=== PATIENT | female | born 1975 | race Caucasian/White ===

== ENCOUNTER → 2016-09-09 | Outpatient (CLI) | payer OTHER ==
[~2016-09-09] MED LIST: NIACIN
--- NOTE | 2016-09-12 12:48 | Diagnostic Imaging Report ---
EXAMINATION: Bilateral screening mammogram 2D views with tomosynthesis. The current study was also evaluated with a Computer Aided Detection (CAD) system. INDICATION: Screening. PERSONAL HISTORY: No current complaints stated on the questionnaire. COMPARISON: None. This is a baseline exam. FINDINGS: The breasts are composed of heterogeneously dense parenchyma which may decrease mammographic sensitivity. There are occasional benign-appearing calcifications. No mass, architectural distortion, or suspicious cluster of calcifications is seen. IMPRESSION: No definite focal lesion is seen. Annual screening mammograms are recommended. ACR BI-RADS Category 2: Benign findings. Result letter will be mailed to the patient. Note: At least 10% of breast cancer is not imaged by mammography. Dictated by: Dictated on workstation # [id number]
== END ==
LOC: RAD 12:35
PROVIDERS: ATTEND Nurse Practitioner
DX: Z12.31 Encounter for screening mammogram for malignant neoplasm of breast (principal)
CPT/HCPCS: 77067

== ENCOUNTER 2017-07-14 08:00 | Outpatient (RCR) | payer OTHER | END 2017-07-16 | disposition home or self-care (01) | PROVIDERS: ATTEND Family Medicine | DX: M54.5 Low back pain (principal) ==

== ENCOUNTER → 2017-09-12 | Outpatient (CLI) | payer OTHER ==
--- NOTE | 2017-09-12 18:03 | Diagnostic Imaging Report ---
INDICATION: Routine screening. COMPARISON: Comparison is made with prior study from 09/09/2016. TECHNIQUE: 2D and 3D bilateral screening mammography was performed with computer-aided detection (CAD) system. FINDINGS: Scattered fibroglandular densities are identified bilaterally. The parenchymal pattern appears stable. No mass or malignant appearing microcalcifications are seen. The axillae are unremarkable. IMPRESSION: No mammographic features suspicious for malignancy are identified. ACR BI-RADS Category 1: Negative. Result letter will be mailed to the patient. Note: At least 10% of breast cancer is not imaged by mammography. Dictated by: Dictated on workstation # [id number]
== END ==
LOC: RAD 14:48
PROVIDERS: ATTEND Nurse Practitioner
DX: Z12.31 Encounter for screening mammogram for malignant neoplasm of breast (principal)
CPT/HCPCS: 77067

== ENCOUNTER 2017-10-11 13:07 | Outpatient (RCR) | payer OTHER | END 2017-10-19 | disposition home or self-care (01) | PROVIDERS: ATTEND Family Medicine | DX: M54.5 Low back pain (principal) ==

== ENCOUNTER 2017-11-07 11:13 | Outpatient (RCR) | payer OTHER | END 2017-11-12 | disposition home or self-care (01) | PROVIDERS: ATTEND Family Medicine | DX: M54.5 Low back pain (principal) ==

== ENCOUNTER 2017-12-28 05:30 | Outpatient (CLI) | payer OTHER ==
[~2017-12-28] VITALS: Ht 167.6 cm; Wt 80.3 kg
[2017-12-28] MEDS ORDERED: ESCI20TA PO (14:44)
[2017-12-28] MEDS ORDERED: GUAI600T43 PO (14:44)
[2017-12-28] MEDS ORDERED: BACI1CAP6 PO (14:44)
[2017-12-28] MEDS ORDERED: FEXO180T84 PO (14:44)
== END 2017-12-28 14:58 | disposition home or self-care (01) ==
LOC: PREOP 05:30
PROVIDERS: ATTEND Obstetrics & Gynecology
DX: Z01.818 Encounter for other preprocedural examination (principal)

== ENCOUNTER 2018-01-05 05:54 | Day surgery (SDC) | payer OTHER ==
[~2018-01-05] VITALS: Ht 167.6 cm; Wt 80.4 kg
[~2018-01-05 05:54] MED LIST changes: +BACI1CAP6 PO; +ESCI20TA PO; +FEXO180T84 PO; +GUAI600T43 PO
[2018-01-05 06:20] VITALS: BP 105/76
[2018-01-05] MEDS ORDERED: ceFAZolin INJECTION 1,000 MG in NS (IVPB) 50 ML IV ONE (06:30)
[2018-01-05] MEDS ORDERED: metroNIDAZOLE 500MG/100ML IVPB 100 ML IV ONE (06:30)
[2018-01-05] MEDS: LACTATED RINGERS 1,000 ML IV PRN ×2 (06:45→08:28)
[2018-01-05] MEDS ORDERED: MIDAZOLAM 2 MG/2 ML (VERSED) VIAL ONE (06:51)
[2018-01-05] MEDS ORDERED: fentaNYL INJECTION 100 MCG/2 ML AMP ONE (06:51)
--- NOTE | 2018-01-05 06:51 | History & Physical-Surgical ---
HPO-Surgical History of Present Illness Chief Complaint: 42 year old female with heavy bleeding. OCPs controlled bleeding but she had undesirable side effects with the OCPs. These improved after stopping the OCPs but the pelvic pain and menorrhagia has increased again. Now requesting definitive treatement for bleeding and pain. Diagnostic laparoscopy and ovarian cancer risk reduction salpingectomy with possible resection of endometriosis/OIP and then hysterscopy, dilation and curettage with Novasure endometrial ablation scheduled today. Risks of bleeding, infection, injury to bowel, bladder and ureter explained and understood. Understands that she is unable to bear children following this procedure. Consents have been signed. Diagnosis/Surgical Indication: menorrhagia, dysmenorrhia, pelvic pain, ovarian cancer risk reduction Procedure: hysteroscopy, novasure endometrial ablation, risk reduction salpingectomy Date of Surgery: Jan 05, 2018 Weight (Pounds): 177 Weight (Ounces): 4.0 Height (Feet): 5 Height (Inches): 6.00 Allergies and Home Medications Allergies Coded Allergies: No Known Drug Allergies (Unverified , 08/29/14) Home Medications Bacillus Coagulans 1 Each Capsule.dr, 1 EACH PO DAILY, (Reported) Escitalopram Oxalate 20 Mg Tablet, 20 MG PO DAILY, (Reported) Fexofenadine HCl 180 Mg Tablet, 180 MG PO DAILY, (Reported) Guaifenesin 600 Mg Tab.er.12h, 600 MG PO DAILY PRN for CONGESTION, (Reported) Patient Home Medication List Home Medication List Reviewed: Yes Past Hekstpn-Ykevht-Imxyip Hx Patient Social History Marrital Status: Number of Children: 3 Number of living children: 2 Employed/Student: employed Alcohol Use: Denies Use Smoking Status: Former Smoker Recent Foreign Travel: No Contact w/other who traveled: No Recent Hopitalizations: No Seasonal Allergies Seasonal Allergies: Yes Surgeries Gallbladder, Orthopedic, Tonsillectomy Reproductive System : No Last Menstrual Period: Dec 18, 2017 Hx : 3 Hx Para: 2 Hx Total # of Abortions (Spona: 1 Hx Reproductive Disorders: Yes Genitourinary No Gastrointestinal No Musculoskeletal No HEENT History of HEENT Disorders: No Cancer No Family Medical History Significant Family History: No Pertinent Family Hx Other Significan Family Hx: FH of breast cancer Exam Vital Signs Capillary Refill : Labs Laboratory Tests Test 01/05/18 06:28 Range/Units Urine Test NEGATIVE NEGATIVE General Appearance: Alert Respiratory: Clear to Auscultation Cardiovascular: Regular Rate, Normal S1, Normal S2 Assessment/Plan Assessment and Plan Menorrhagia Pelvic pain Ovarian cancer risk reduction Plan as above OPAL MIN DO Jan 05, 2018 06:51
[2018-01-05] MEDS ORDERED: SEVOFLURANE (ULTANE) 15 ML INHAL SOLN ONE ×4 (06:57→08:58)
[2018-01-05] MEDS ORDERED: DEXAMETHASONE 10 MG/ML (DECADRON) 1 ML VIAL ONE (06:57)
[2018-01-05] MEDS ORDERED: proPOfol 200 MG/20 ML (DIPRIVAN) VIAL IV ONE (06:57)
[2018-01-05] MEDS ORDERED: ONDANSETRON 4 MG/2 ML (SDV) Z0FRAN ONE ×2 (06:57→09:22)
[2018-01-05] MEDS ORDERED: LIDOCAINE PF 2% 5 ML (XYLOCAINE) VIAL ONE (06:57)
[2018-01-05 07:04] LABS: BASOPHILS % (AUTO) 0 % (0-10); EOSINOPHILS # (AUTO) 0.1 10^3/uL (0.0-0.3); EOSINOPHILS % (AUTO) 2 % (0-10); HEMATOCRIT 38 % (35-52); HEMOGLOBIN 12.8 G/DL (11.5-16.0); LYMPHOCYTES # (AUTO) 1.6 X 10^3 (1.0-4.0); LYMPHOCYTES % (AUTO) 28 % (12-44); MEAN CORPUSCULAR HEMOGLOBIN 32 PG (25-34); MEAN CORPUSCULAR HGB CONC 34 G/DL (32-36); MEAN CORPUSCULAR VOLUME 96 FL (80-99); MONOCYTES # (AUTO) 0.6 X 10^3 (0.0-1.0); MONOCYTES % (AUTO) 11 % (0-12); NEUTROPHILS # (AUTO) 3.5 X 10^3 (1.8-7.8); NEUTROPHILS % (AUTO) 60 % (42-75); PLATELET COUNT 236 10^3/uL (130-400); RED BLOOD COUNT 3.97 10^6/uL (4.35-5.85); RED CELL DISTRIBUTION WIDTH 12.9 % (10.0-14.5); WHITE BLOOD COUNT 5.9 10^3/uL (4.3-11.0)
[2018-01-05] MEDS ORDERED: BUPIVACAINE 0.25% 30 ML (SENSORCAINE) VIAL ONE (07:11)
[2018-01-05] MEDS ORDERED: ROCURONIUM 10 MG/ML 5 ML SYRINGE IV ONE (07:41)
[2018-01-05] MEDS ORDERED: NEOSTIGMINE 1 MG/ML 5 ML SYRINGE ONE (08:54)
[2018-01-05] MEDS ORDERED: GLYCOPYRROLATE 0.2 MG/ML (ROBINUL) 2 ML VIAL ONE (08:54)
[2018-01-05] MEDS ORDERED: KETOROLAC 30 MG/ML VIAL ONE (08:54)
[2018-01-05] MEDS ORDERED: MEPERIDINE (DEMEROL) INJ 50 MG/ML ONE (09:12)
[2018-01-05] MEDS ORDERED: HYDROmorphone 2 MG/ML VIAL (DILAUDID) IV ONE (09:15)
[2018-01-05] MEDS ORDERED: MEPERIDINE (DEMEROL) INJ 50 MG/ML IVP ONE (09:15)
[2018-01-05] MEDS ORDERED: morphine INJ 10 MG/ML 1ML (SYR OR VIAL) IVP ONE (09:15)
[2018-01-05] MEDS ORDERED: ONDANSETRON 4 MG/2 ML (SDV) Z0FRAN IVP PRN ×2 (09:15→09:30)
[2018-01-05] MEDS ORDERED: D5 LR IV SOLUTION 1,000 ML IV SCH (09:17)
--- NOTE | 2018-01-05 09:17 | Progress Note-Post Operative ---
Post-Operative Progess Note Surgeon (s)/Car Repairer Pullman (s) Surgeon OPAL MIN DO Car Repairer Pullman: NA Pre-Operative Diagnosis menorrhagia, dysmenorrhia, pelvic pain, ovarian cancer risk reduction Post-Operative Diagnosis Menorrhagia right tubal cyst dysmenorrhea retroverted uterus endometrial polyp colonic adhesions Procedure & Operative Findings Date of Procedure 01/05/18 Procedure Performed/Findings Hysteroscopy with dilation and curettage Novasure endometrial ablation Laparoscopy with ovarian cancer risk reduction salpingectomy lysis of adhesions Length 6.0 Width 4.7 Power 155 Time 58 seconds Anesthesia Type General Estimated Blood Loss Estimated blood loss (mL): minimal Specimens/Packing Specimens Removed endometrial curettings bilateral tubes OPAL MIN DO Jan 05, 2018 09:17
[2018-01-05] MEDS ORDERED: morphine INJ 10 MG/ML 1ML (SYR OR VIAL) ONE (09:22)
--- NOTE | 2018-01-05 09:24 | Discharge Inst-Women's Service ---
Discharge Inst-Women's Serv Depart Medication/Instructions New, Converted or Re-Newed RX: RX on Chart Instructions No driving for 5 days Nothing in the vagina for 6 weeks no lifting over 25 lbs Expect vaginal discharge/spotting for up to a week with and increase in discharge about 10-14 days after surgery Final Diagnosis menorrhagia endometrial polyp right tubal cyst ovarian cancer risk reduction Procedure - laparoscopy with bilateral salpingectomy hysteroscopy, dilation and curettage, Novasure endometrial ablation Consults/Follow Up Additional Follow Up: Yes (1 week with Valeriy for incision check/ discussion) Activity Activity: Activity as Tolerated Driving Instructions: No Driving for 1 Week (5 days) NO SMOKING: NO SMOKING Nothing Inside Vagina: No Douching, No [place], No Tampons Diet Discharge Diet: No Restrictions Symptoms to Report to : Bleeding Excessive, Pain Increased, Fever Over 101 Degrees F, Vaginal Bleeding Increase, Cramps in Feet or Legs, Vaginal Discharge Foul For Any Problems or Questions: Contact Your Physician Skin/Wound Care Infection Signs and Symptoms: Increased Redness, Foul Odor of Wound, Increased Drainage, Skin Itchy or Has a Rash, Increased Swelling, Temperature Above 101 F Operative Area Clean and Dry: You May Remove Bandage (in 3 days) Stitches/Donla/Dermabond: Dermabond Bathing Instructions: OPAL Peter DO Jan 05, 2018 09:24
[2018-01-05] MEDS ORDERED: IBUP-1773 PO (09:29)
[2018-01-05] MEDS ORDERED: ACHD5005 PO (09:29)
[2018-01-05] MEDS ORDERED: KETOROLAC 30 MG/ML VIAL IVP ONE ×2 (09:30)
[2018-01-05] MEDS ORDERED: HYDROcodone/APAP 5 MG/325 MG (LORTAB) TAB PO PRN (09:30)
[2018-01-05] MEDS ORDERED: IBUPROFEN 600 MG (MOTRIN) TAB PO PRN (09:30)
[2018-01-05 10:05] VITALS: BP 111/77
[2018-01-05 10:35] VITALS: BP 107/76
[2018-01-05 11:29] VITALS: BP 109/73
--- NOTE | 2018-01-05 11:46 | Operative Report ---
Operative Report Date of Procedure/Surgery Jan 05, 2018 Surgeon (s) OPAL MIN DO Publications Manager (s): NA Post-Operative Diagnosis Menorrhagia right tubal cyst dysmenorrhea retroverted uterus endometrial polyp colonic adhesions Procedure Performed See prvious note Description of Procedure Estimated blood loss (mL): minimal Specimen(s) collected/removed see previous Description of the Procedure With informed consent the patient was taken to the operating room where general anesthesia was found to be adequate. She was prepped and draped in the usual sterile fashion in the dorsolithotomy position. A speculum was placed in the vagina and the cervix was grasped with a sharp toothed tenaculum. The cervix was then gently dilate with Jorge dilators. The sure sound was now inserted and the length measured to be 6.2 cm. I then did a hysteroscopy revealing polypoid appearing tissue, multiple areas, in the endometrium. I then removed the hysteroscope and The NovaSure device was inserted and measurements were taken (4.8 cm width), The compliance test was now done by inserting a small puff of CO2 gas into the endometrial canal and once this was passed, the device was enabled. The power was 164. The ablation was begun and halted once it was complete (55 seconds). A repeat hysteroscopy revealed ablated endometrium. A Cory uterine manipulator was now inserted. Attention was turned to the abdomen. The umbilicus was injected with 0.25% Marcaine and then a 10 mm incision was made and the Veress needle was inserted. intraabdominal placement was confirmed with a saline drop test and a drop in pressure. The abdomen was now insufflated with warmed CO2 gas. a 10-12 mm trocar was now inserted under direct visualization with the CalciMedicaview. A survey of the pelvis revealed that the tubes and ovaries appeared normal. There was bowel overlying the left tube and ovary and adhesions of the colon to the left pelvic side wall. These needed to be taken down before the salpingectomy could be continued. I inserted two additional trocars were placed in the left lower quadrant, lateral to the rectus muscles and avoiding the inferior epigastric vessels. the adhesions in the left lower quadrant were now taken down in a blunt ans sharp fashion to allow visualization of the left tube and ovary. The salpingectomy was now completed by elevating each tube and then excising along the mesosalpinx with the LigaSure. I then excised at the level of the cornual region of the uterus. The tubes were now removed from the pelvis with the Endo Catch. There was good hemostasis. The instruments were removed the abdomen and I suctioned the gas from the abdomen and fluid from the pelvis. The umbilical fascial incision was repaired with 0-0 Vicryl in figure of eight fashion. The skin was now closed with 4-0 Monocryl in subcuticular fashion and Cowan-Set skin glue was placed. The instruments were removed. There was a small laceration on the cervix that was repaired with a figure of eight stitch of 2-0 Vicryl. The patient was awakened and taken to recovery in stable condition. Sponge and instrument counts were correct times two. Findings of the Procedure see previous note Allergies and Home Medications Allergies Coded Allergies: No Known Drug Allergies (Unverified , 08/29/14) Home Medications Bacillus Coagulans 1 Each Capsule.dr, 1 EACH PO DAILY, (Reported) Escitalopram Oxalate 20 Mg Tablet, 20 MG PO DAILY, (Reported) Fexofenadine HCl 180 Mg Tablet, 180 MG PO DAILY, (Reported) Guaifenesin 600 Mg Tab.er.12h, 600 MG PO DAILY PRN for CONGESTION, (Reported) Hydrocodone Bit/Acetaminophen 1 Tab Tab, 1 TAB PO Q4H PRN for PAIN no greater than 3 grams of acetominophen per 24 hours Prescribed by: OPAL MIN on 01/05/18928 Ibuprofen 600 Mg Tablet, 600 MG PO Q6H PRN for PAIN Prescribed by: OPAL MIN on 01/05/18928 Patient Home Medication List Home Medication List Reviewed: Yes OPAL MIN DO Jan 05, 2018 11:46
--- NOTE | 2018-01-05 13:50 | Anesthesia-General Post-Op ---
General Patient Condition Mental Status/LOC: Same as Preop Cardiovascular: Satisfactory Nausea/Vomiting: Absent Respiratory: Satisfactory Pain: Controlled Complications: Absent Post Op Complications Complications None Follow Up Care/Instructions Patient Instructions None needed. Anesthesia/Patient Condition Patient Condition Patient was seen after the procedure and she was doing well, no complaints, stable vital signs, no apparent adverse anesthesia problems. CECY CALDERON DO Jan 05, 2018 13:50
== END 2018-01-05 11:35 | disposition home or self-care (01) ==
LOC: SDC 05:54
PROVIDERS: ATTEND Obstetrics & Gynecology
DX: N92.0 Excessive and frequent menstruation with regular cycle (principal); N94.6 Dysmenorrhea, unspecified; N84.0 Polyp of corpus uteri; N83.8 Other noninflammatory disorders of ovary, fallopian tube and broad ligament; Z40.03 Encounter for prophylactic removal of fallopian tube(s)
CPT/HCPCS: 36415; 84703; 85025; 87081; 88305

== ENCOUNTER 2018-05-16 11:15 | Outpatient (RCR) | payer OTHER ==
[~2018-05-16 11:15] MED LIST changes: +ACHD5005 PO; +IBUP-1773 PO
== END 2018-05-23 | disposition home or self-care (01) ==
PROVIDERS: ATTEND Family Medicine
DX: M54.5 Low back pain (principal)

== ENCOUNTER → 2018-09-13 | Outpatient (CLI) | payer OTHER ==
--- NOTE | 2018-09-13 13:17 | Diagnostic Imaging Report ---
Indication: Routine screening. Comparison is made with prior mammogram 09/12/2017 and 09/09/2016. 2-D and 3-D bilateral screening mammography was performed with CAD. Scattered fibroglandular densities are identified bilaterally. The parenchymal pattern is stable. No mass or malignant appearing microcalcifications are seen. Axillae are unremarkable. Impression: BI-RADS category one No mammographic features suspicious for malignancy are identified. ACR BI-RADS Category 1: Negative. Result letter will be mailed to the patient. Note: At least 10% of breast cancer is not imaged by mammography. Dictated by: Dictated on workstation # [id number]
== END ==
LOC: RAD 10:07
PROVIDERS: ATTEND Nurse Practitioner
DX: Z12.31 Encounter for screening mammogram for malignant neoplasm of breast (principal)
CPT/HCPCS: 77067

== ENCOUNTER 2018-12-05 11:16 | Outpatient (RCR) | payer OTHER | END 2018-12-12 | disposition home or self-care (01) | PROVIDERS: ATTEND Family Medicine | DX: M54.5 Low back pain (principal) ==

== ENCOUNTER 2019-03-12 11:15 | Outpatient (RCR) | payer OTHER | END 2019-03-19 | disposition home or self-care (01) | PROVIDERS: ATTEND Family Medicine | DX: M54.9 Dorsalgia, unspecified (principal) ==

== ENCOUNTER 2019-04-23 11:18 | Outpatient (RCR) | payer OTHER | END 2019-06-24 | disposition home or self-care (01) | PROVIDERS: ATTEND Family Medicine | DX: M54.9 Dorsalgia, unspecified (principal) ==

== ENCOUNTER 2019-08-07 11:17 | Outpatient (RCR) | payer OTHER | END 2019-10-28 | disposition home or self-care (01) | PROVIDERS: ATTEND Family Medicine | DX: M54.2 Cervicalgia (principal); M54.9 Dorsalgia, unspecified; Z91.09 Other allergy status, other than to drugs and biological substances ==

== ENCOUNTER → 2019-09-26 | Outpatient (CLI) | payer OTHER ==
--- NOTE | 2019-09-26 18:15 | Diagnostic Imaging Report ---
PROCEDURE: US non-OB pelvis comp/trans. TECHNIQUE: Multiple realtime grayscale images were obtained of the pelvis in various projections, endovaginally. Transabdominal imaging was also performed. INDICATION: Pelvic pain. COMPARISON: None available. FINDINGS: The uterus measures 6.0 x 4.1 x 4.1 cm. The myometrium is normal in echogenicity without discrete mass. Uterus is retroverted. The endometrium measures up to 0.4 cm where visualized, and is normal in echogenicity. The right ovary measures 4.2 x 2.4 x 2.7 cm. The left ovary measures 3.7 x 2.1 x 1.3 cm. Both the right ovary has an anechoic cyst with thin internal septations and it overall measures 2.7 x 1.9 x 2.3 cm. Left ovary is normal in appearance. Blood flow is seen in both ovaries on color doppler imaging. No suspicious adnexal mass or fluid collection. No free pelvic fluid. IMPRESSION: Mildly complicated cyst in the left ovary could represent a hemorrhagic cyst with retracting clot. Consider follow-up pelvic ultrasound in 6-12 weeks to assess for resolution. Dictated by: Dictated on workstation # [id number]
--- NOTE | 2019-09-27 08:51 | Diagnostic Imaging Report ---
INDICATION: Routine screening. Comparison is made to prior mammogram 09/13/2018 and 09/12/2017. 2-D and 3-D bilateral screening mammography was performed with CAD. Scattered fibroglandular densities are identified bilaterally. The parenchymal pattern is stable. No mass or malignant-appearing microcalcifications are seen. Axillae are unremarkable. IMPRESSION: BI-RADS Category 1. No mammographic features suspicious for malignancy are identified. ACR BI-RADS Category 1: Negative. Result letter will be mailed to the patient. Note: At least 10% of breast cancer is not imaged by mammography. Dictated by: Dictated on workstation # [id number]
== END ==
LOC: RAD 14:34
PROVIDERS: ATTEND Nurse Practitioner
DX: Z12.31 Encounter for screening mammogram for malignant neoplasm of breast (principal); N83.202 Unspecified ovarian cyst, left side
CPT/HCPCS: 76830; 76856; 77063; 77067

== ENCOUNTER 2019-11-12 05:36 | Outpatient (CLI) | payer OTHER ==
[~2019-11-12] VITALS: Ht 167 cm; Wt 85.4 kg
== END 2019-11-12 14:16 | disposition home or self-care (01) ==
LOC: PREOP 05:36
PROVIDERS: ATTEND Obstetrics & Gynecology
DX: Z01.818 Encounter for other preprocedural examination (principal)

== ENCOUNTER 2019-11-19 08:04 | Day surgery (SDC) | payer OTHER ==
[~2019-11-19] VITALS: Ht 167 cm; Wt 85.4 kg
[2019-11-19] VITALS (10 sets, daily range): BP systolic 102–145; BP diastolic 64–90
[2019-11-19] MEDS ORDERED: ceFAZolin INJECTION 1,000 MG in WATER (STERILE) FOR INJECTION 10 ML IV ONE (08:30)
[2019-11-19] MEDS ORDERED: metroNIDAZOLE 500MG/100ML IVPB 100 ML IV ONE (08:30)
[2019-11-19 08:40] LABS: BILIRUBIN,URINE NEGATIVE (NEGATIVE); CLARITY,URINE CLEAR; COLOR,URINE YELLOW; GLUCOSE, URINE (UA) NEGATIVE (NEGATIVE); KETONES,URINE NEGATIVE (NEGATIVE); LEUKOCYTE ESTERASE ,URINE NEGATIVE (NEGATIVE); NITRITE,URINE NEGATIVE (NEGATIVE); PH,URINE 6.5 (5-9); PROTEIN,URINE NEGATIVE (NEGATIVE)
[2019-11-19] MEDS ORDERED: BUP/EPI 0.25% 1:200,000 (MARCAINE) 30 ML VIAL ONE (08:41)
[2019-11-19 08:46] LABS: BACTERIA,URINE NEGATIVE /HPF; SQUAMOUS EPITHELIAL CELL,UR 0-2 /HPF; WBC,URINE RARE /HPF
[2019-11-19] MEDS ORDERED: proPOfol 200 MG/20 ML (DIPRIVAN) VIAL IV ONE (08:49)
[2019-11-19] MEDS ORDERED: ONDANSETRON 4 MG/2 ML (SDV) Z0FRAN ONE (08:49)
[2019-11-19] MEDS ORDERED: SEVOFLURANE (ULTANE) 15 ML INHAL SOLN ONE ×7 (08:49→13:30)
[2019-11-19] MEDS ORDERED: LIDOCAINE PF 2% 5 ML (XYLOCAINE) VIAL ONE (08:49)
[2019-11-19] MEDS ORDERED: MIDAZOLAM 2 MG/2 ML (VERSED) VIAL ONE (08:50)
[2019-11-19] MEDS ORDERED: fentaNYL INJECTION 100 MCG/2 ML AMP ONE (08:50)
[2019-11-19] MEDS: LACTATED RINGERS 1,000 ML IV PRN ×2 (09:31→10:35)
[2019-11-19 09:41] LABS: BASOPHILS % (AUTO) 0 % (0-10); EOSINOPHILS % (AUTO) 1 % (0-10); HEMATOCRIT 38 % (35-52); LYMPHOCYTES % (AUTO) 29 % (12-44); MEAN CORPUSCULAR HEMOGLOBIN 32 PG (25-34); MEAN CORPUSCULAR HGB CONC 34 G/DL (32-36); MEAN CORPUSCULAR VOLUME 95 FL (80-99); MONOCYTES % (AUTO) 8 % (0-12); NEUTROPHILS # (AUTO) 4.3 X 10^3 (1.8-7.8); NEUTROPHILS % (AUTO) 62 % (42-75); PLATELET COUNT 275 10^3/uL (130-400); WHITE BLOOD COUNT 6.9 10^3/uL (4.3-11.0)
[2019-11-19 09:42] LABS: EOSINOPHILS # (AUTO) 0.1 10^3/uL (0.0-0.3); MONOCYTES # (AUTO) 0.6 X 10^3 (0.0-1.0)
[2019-11-19] MEDS ORDERED: LACTATED RINGERS 1,000 ML IV SCH (10:14)
--- NOTE | 2019-11-19 10:14 | Operative Report ---
Operative Report Date of Procedure/Surgery Nov 19, 2019 Surgeon (s) OPAL MIN DO Graphic Designer (s): NA Post-Operative Diagnosis Same (AUB, right complex ovaran cyst, cervical stenosis, post ablation syndrome) Procedure Performed RaTH, Right oophorectomy, left ovarian cyst fulgeration Description of Procedure Anesthesia Type: General Estimated blood loss (mL): minimal Specimen(s) collected/removed uterus and right ovary Packing: none Description of the Procedure After informed consent was obtained, patient was taken into the operating room where general anesthetic was found to be adequate. She was prepped and draped in the usual sterile fashion in the dorsal lithotomy position. A Rebollar catheter was placed. A speculum was placed in the vagina. The cervix was visualized and the anterior lip was grasped with a sharp toothed tenaculum. The cervix had to be dilated prior to sounding. Once this was complete, there was bleeding, likely the cause of AUB (hemotometra). The uterus was sounded and depth was approximately 8 centimeters. I placed the Enrique device (8 cm) and a 3.0 cm collar was advanced over the cervix. I inserted the Enrique without diffic ulty, inflating the balloon and securing it around the fornix of the cervix. The collar was then secured with sutures at 12 o'clock. Attention was then turned to the patient's abdomen. A supraumbilical incision was made about 8 mm. A Veress needle was inserted and I confirmed intraabdominal placement with a drop in pressure and the saline drop test. The opening pressure was 6 mmHg. I then insufflated the abdomen to a maximum of 15 mmHg with warmed CO2 gas. I placed an additional 8 mm trocar in the left abdomen lateral to the umbilicus approximately 12 cm. The second robotic port was placed about 12 cm lateral to the right placement. This was an 8 mm trocar. These were placed under direct visualization of the laparoscope. 0.25% Marcaine was injected prior to placement of all trocars. When all placements were confirmed, the patient was placed in steep Trendelenburg allowing adequate visualization and the robot was brought in for docking. The docking was accomplished without difficulty. I then took over the command of the robot utilizing the vessel sealer and monopolar silke. There was a complex right ovarian cyst. It appeared to be benign, but it had been persistent. Appeared to be a small portion of retained tube on the ovary, and a fibroma on the ovary, in addition to a corpus luteum. I was able to visualize the round ligaments bilaterally and grasped them and cauterized with bipolar cautery and then cut with my silke. I then grasped the left infundibolopelvic ligament with the vessel sealer, cauterized and transected, taking care to visualize the ureter, which was seen throughout the case and found to be well aware from the area of dissection. The left ovary will be left intact, but there is a large corpus luteum (> 3 cm) and this will be drained and fulgerated prior to the end of the case. The left uterine ovarian ligament was grasped with the vessel sealer, cauterized and ligated and cut. I then moved my dissection to the posterior leaves of the broad ligament. I dissected the posterior leaves of the broad ligament off the uterine arteries skeletonizing them bilaterally. I then took a second clamp with the bipolar cautery and with the silke, transected the vessels away from the lateral aspect to the cervical stroma. I dissected the anterior peritoneum off the lower uterine segment. I continually pushed the bladder back and I took excessively great care and I was eventually able to dissect the vesicouterine peritoneum off the lower uterine segment. I then dissected in a V fashion towards the midline between the uterosacral ligaments. This allowed me to skeletonize the uterine vessels bilaterally. The balloon on the ENRIQUE was insufflated. This allowed me to see the ENRIQUE circumferentially. I then performed a colpotomy anteriorly and then amputate with cervix away from the vaginal fornix. I then continued the colpotomy circumferentially. Once this was performed, the registered nurse first assistant removed the uterus, tubes and ovaries through the vagina. She then left a sponge in the vagina to maintain the pneumoperitoneum. There was a cyst noted on the left ovary. The ovary otherwise appeared normal. I perforated and fulgerated the cyst and drained clear fluid. I did not remove the ovary or the cyst wall. I then began closure of the vaginal cuff. The uterus was left in the vagina to maintain pneumoperitoneum. I closed the apices of the vaginal cuff with 2-0 Vicryl V lock sutures with a colposuspension through the uterosacral ligaments. This suspended the apices of the vaginal cuff. I extended this to the midline from both sides and overlapped the V lock sutures in the midline. Excellent closure is noted and hemostasis is achieved. All the needles were removed from the patient's abdomen. Now, the robotic instruments were removed and the robot was docked back to laparoscopy. The pelvis was irrigated. There was no active bleeding noted. Bilateral ureters were seen the entire time during the surgery and were peristalsing. The left ureter was more tortuous and slightly anterior to normal placement, but was visualized the entire case and was well away from the area of dissection. There was no excessive bleeding noted. The trocars were removed under direct visualization. The laparoscopic sites were visualized and found to be hemostatic. The trocar sites were injected with 0.25% Marcaine. The supraumbilical fascial incision was closed with 0 Vicryl in a figure of 8 fashion. The skin incisions were closed with 4-0 Monocryl in a subcuticular fashion and then with Dermabond. Op sites were placed over the incision sites. The instruments were removed from the vagina and I noted there were no abrasions. the patient was awakened and taken to recovery in a stable condition. Sponge, lap, needle and instrument counts were correct times. Findings of the Procedure Retroverted uterus. Slightly boggy, stenotic cervix, absent tubes, complex right ovarian cyst (likely CL plus tubal remnant, plus fibroma), left ovarian cyst (CL), bleeding from uterus after cervix dilated Allergies and Home Medications Allergies Coded Allergies: No Known Drug Allergies (Unverified , 11/12/19) Home Medications Escitalopram Oxalate 20 Mg Tablet, 20 MG PO DAILY, (Reported) Fexofenadine HCl 180 Mg Tablet, 180 MG PO DAILY, (Reported) Patient Home Medication List Home Medication List Reviewed: Yes OPAL MIN DO Nov 19, 2019 10:14
--- NOTE | 2019-11-19 10:14 | Progress Note-Pre Operative ---
Pre-Operative Progress Note H&P Reviewed The H&P was reviewed, patient examined and no changes noted. Date Seen by Provider: Nov 19, 2019 Time Seen by Provider: 09:40 Date H&P Reviewed: Nov 19, 2019 Time H&P Reviewed: 07:00 Pre-Operative Diagnosis: AUB, cervical stenosis, post ablation syndrome, complex adnexal cyst OPAL MIN DO Nov 19, 2019 10:14
[2019-11-19] MEDS ORDERED: KETOROLAC 30 MG/ML VIAL IV SCH (10:15)
[2019-11-19] MEDS ORDERED: PSEUDOEPHEDRINE HCL 30 MG (SUDAFED) TAB PO PRN (10:15)
[2019-11-19] MEDS ORDERED: ONDANSETRON 4 MG (ZOFRAN) ORAL DISSOLVE TAB PO PRN (10:15)
[2019-11-19] MEDS ORDERED: morphine INJ 4 MG/ML 1 ML (VIAL/SYRINGE) IVP PRN (10:15)
[2019-11-19] MEDS ORDERED: CHLORASEPTIC LOZENGE MM PRN (10:15)
[2019-11-19] MEDS ORDERED: ROCURONIUM 10 MG/ML 5 ML SYRINGE IV ONE ×2 (11:10)
[2019-11-19] MEDS ORDERED: NEOSTIGMINE 3 MG/3 ML VIAL ONE (11:10)
[2019-11-19] MEDS ORDERED: GLYCOPYRROLATE 0.2 MG/ML (ROBINUL) 2 ML VIAL ONE (11:10)
[2019-11-19] MEDS ORDERED: HYDROmorphone 2 MG/ML VIAL (DILAUDID) ONE ×2 (11:44→12:20)
[2019-11-19] MEDS ORDERED: ACETAMINOPHEN 500 MG TAB (TYLENOL) PO SCH (12:00)
[2019-11-19] MEDS ORDERED: KETOROLAC 30 MG/ML VIAL ONE (12:19)
[2019-11-19] MEDS ORDERED: HYDROmorphone 2 MG/ML VIAL (DILAUDID) IV ONE (12:30)
[2019-11-19] MEDS ORDERED: ONDANSETRON 4 MG/2 ML (SDV) Z0FRAN IVP PRN (12:30)
[2019-11-19] MEDS ORDERED: morphine INJ 10 MG/ML 1ML (SYR OR VIAL) IVP ONE (12:30)
[2019-11-19] MEDS ORDERED: guaiFENesin (MUCINEX) 600 MG TAB PO SCH (13:00)
[2019-11-19] MEDS ORDERED: LORATADINE (CLARITIN) 10 MG TAB PO SCH (13:00)
--- NOTE | 2019-11-19 13:05 | NUR ---
KIMBERLY LISSETT admitted to room 3305-1, with an admitting diagnosis of ROBOTIC HYSTETRECTOMY, on 11/19/19 from [facility] via , accompanied by .KIMBERLY GALEANA introduced to surroundings, call light, bed controls, phone, TV, temperature control, lights, meal times, smoking policy, visitor policy, side rail policy, bathrooms and showers. Patient Rights given to patient in the handbook.KIMBERLY GALEANA verbalizes understanding that [facility] is not responsible for the loss or damage to any personal effects or valuables that are kept in the patients posession during their hospitalization. The following Patient Care Plans were discussed with the : Discharge Planning, ,, and . KIMBERLY GALEANA verbalizes understanding of Interdisciplinary Patient Education. Patient and/or family were informed about the Rapid Response Team and its purpose.
--- NOTE | 2019-11-19 13:15 | NUR ---
INITIAL ASSESSMENT COMPLETED, VSS, SEE INTERVENTIONS FOR DETAILED ASSESSMENTS.
--- NOTE | 2019-11-19 14:10 | NUR ---
PT REQUESTING ORTIZ OUT, ANGEL DICK.
[2019-11-19] MEDS ORDERED: CELE200C PO (14:23)
[2019-11-19] MEDS ORDERED: ACET-93 PO (14:23)
[2019-11-19] MEDS ORDERED: OXC5T PO (14:23)
--- NOTE | 2019-11-19 14:26 | Discharge Inst-Women's Service ---
Discharge Inst-Women's Serv Depart Medication/Instructions New, Converted or Re-Newed RX: Transmitted to Pharmacy Instructions nothing in the vagina for 12 weeks (or until cleared) no lifting over 20 lbs no driving for 1 week no baths/pools, etc Final Diagnosis abnormal uterine bleeding cervical stenosis complex right ovarian cyst Problems Reviewed?: Yes Consults/Follow Up Additional Follow Up: Yes (1 week for incision check and 10-12 weeks for pelvic exam) Activity Activity: Activity as Tolerated Driving Instructions: No Driving for 1 Week NO SMOKING: NO SMOKING Nothing Inside Vagina: No Douching, No [place], No Tampons Diet Discharge Diet: No Restrictions Symptoms to Report to : Swelling Increased, Bleeding Excessive, Pain Increased, Constipation(Persistant), Fever Over 101 Degrees F, Vaginal Bleeding Increase, Cramps in Feet or Legs, Vaginal Discharge Foul For Any Problems or Questions: Contact Your Physician Skin/Wound Care Infection Signs and Symptoms: Increased Redness, Foul Odor of Wound, Increased Drainage, Skin Itchy or Has a Rash, Increased Swelling, Temperature Above 101 F Operative Area Clean and Dry: Keep Incision Clean/Dry, You May Remove Bandage (Remove after 3 days or if soiled/wet) Stitches/Donal/Dermabond: Dermabond Bathing Instructions: OPAL Peter DO Nov 19, 2019 14:26
--- NOTE | 2019-11-19 14:45 | NUR ---
UP TO BR WITH RN AT SIDE, PT VOIDED 50CC BACK TO EATING LUNCH.
--- NOTE | 2019-11-19 16:03 | NUR ---
PT UP TO BR VOIDED, REQUESTING D/C HOME.
--- NOTE | 2019-11-19 16:45 | NUR ---
DR MIN CALLED, NEW ORDERS RECEIVED.
--- NOTE | 2019-11-19 17:10 | NUR ---
DISCHARGE INSTRUCTIONS EXPLAINED, SIGNED, NO QUESTIONS NOTED, PT WILL SCHEDULE FOLLOW UP APPOINTMENT.
--- NOTE | 2019-11-19 17:35 | NUR ---
KIMBERLY GALEANA demonstrates understanding of discharge instructions and accurately returns instructions upon questioning. Copy of Post-Discharge Instructions given to PT. KIMBERLY GALEANA is able to manage continuing needs after discharge. Patients belongings returned to . Patient discharged from 3305-1 oN 11/19/19 at 1735. KIMBERLY GALEANA left floor via , accompanied by .
--- NOTE | 2019-11-20 07:21 | Anesthesia-General Post-Op ---
General Patient Condition Mental Status/LOC: Same as Preop Cardiovascular: Satisfactory Nausea/Vomiting: Absent Respiratory: Satisfactory Pain: Controlled Complications: Absent Post Op Complications Complications None Follow Up Care/Instructions Patient Instructions None needed. Anesthesia/Patient Condition Patient Condition Patient is doing well, no complaints, stable vital signs, no apparent adverse anesthesia problems. No complications reported per nursing. D/C [place] [facility] [place]: Yes LAN REAVES CRNA Nov 20, 2019 07:21
[2019-11-20] MEDS ORDERED: CELECOXIB 100 MG (CeleBREX) CAP PO SCH (10:00)
== END 2019-11-19 17:35 | disposition home or self-care (01) ==
LOC: SDC 08:04 → WS 14:08 → SDC 17:35
PROVIDERS: ATTEND Obstetrics & Gynecology
DX: D27.0 Benign neoplasm of right ovary (principal); N93.9 Abnormal uterine and vaginal bleeding, unspecified; N88.2 Stricture and stenosis of cervix uteri; N99.85 Post endometrial ablation syndrome; F32.9 Major depressive disorder, single episode, unspecified; E66.9 Obesity, unspecified; Z68.30 Body mass index [BMI] 30.0-30.9, adult; Z79.899 Other long term (current) drug therapy; Z87.891 Personal history of nicotine dependence; Z90.49 Acquired absence of other specified parts of digestive tract; Z20.828 Contact with and (suspected) exposure to other viral communicable diseases; Z80.3 Family history of malignant neoplasm of breast; Z80.8 Family history of malignant neoplasm of other organs or systems; Z82.3 Family history of stroke
CPT/HCPCS: 58571; 58662; 81000; 84703; 85025; 86850; 86900; 86901; 87081; 88307; U0002; 36415; 87635

== ENCOUNTER 2019-12-13 20:03 | Emergency (ER) | payer OTHER ==
[~2019-12-13] VITALS: Ht 167.7 cm; Wt 84.4 kg
[~2019-12-13 20:03] MED LIST changes: +ACET-93 PO; +CELE200C PO; +OXC5T PO
[2019-12-13 22:02] LABS: BILIRUBIN,URINE NEGATIVE (NEGATIVE); CLARITY,URINE CLEAR; COLOR,URINE YELLOW; GLUCOSE, URINE (UA) NEGATIVE (NEGATIVE); KETONES,URINE NEGATIVE (NEGATIVE); LEUKOCYTE ESTERASE ,URINE TRACE (NEGATIVE); NITRITE,URINE NEGATIVE (NEGATIVE); PH,URINE 6.5 (5-9); PROTEIN,URINE NEGATIVE (NEGATIVE)
[2019-12-13 22:10] LABS: BACTERIA,URINE TRACE /HPF; SQUAMOUS EPITHELIAL CELL,UR 0-2 /HPF; WBC,URINE 0-2 /HPF
[2019-12-13 22:11] LABS: AMORPHOUS SEDIMENT,UR MOD AMOR URATES /LPF
[2019-12-13 22:26] LABS: BASOPHILS # (AUTO) 0.1 10^3/uL (0.0-0.1); BASOPHILS % (AUTO) 1 % (0-10); EOSINOPHILS # (AUTO) 0.5 10^3/uL (0.0-0.3); EOSINOPHILS % (AUTO) 5 % (0-10); HEMATOCRIT 42 % (35-52); HEMOGLOBIN 14.1 g/dL (11.5-16.0); LYMPHOCYTES # (AUTO) 3.5 10^3/uL (1.0-4.0); LYMPHOCYTES % (AUTO) 37 % (12-44); MEAN CORPUSCULAR HEMOGLOBIN 32 pg (25-34); MEAN CORPUSCULAR HGB CONC 33 g/dL (32-36); MEAN CORPUSCULAR VOLUME 96 fL (80-99); MONOCYTES # (AUTO) 0.8 10^3/uL (0.0-1.0); MONOCYTES % (AUTO) 8 % (0-12); NEUTROPHILS # (AUTO) 4.7 10^3/uL (1.8-7.8); NEUTROPHILS % (AUTO) 49 % (42-75); PLATELET COUNT 323 10^3/uL (130-400); WHITE BLOOD COUNT 9.6 10^3/uL (4.3-11.0)
[2019-12-13 22:34] LABS: ALBUMIN 4.3 GM/DL (3.2-4.5); CHLORIDE 106 MMOL/L (98-107); POTASSIUM 4.4 MMOL/L (3.6-5.0); SODIUM 138 MMOL/L (135-145)
[2019-12-13 22:35] LABS: CALCIUM 9.4 MG/DL (8.5-10.1)
[2019-12-13 22:36] LABS: GLUCOSE 95 MG/DL (70-105); TOTAL PROTEIN 7.9 GM/DL (6.4-8.2)
[2019-12-13 22:37] LABS: CARBON DIOXIDE 20 MMOL/L (21-32)
[2019-12-13 22:38] LABS: BILIRUBIN,TOTAL 0.3 MG/DL (0.1-1.0)
[2019-12-13 22:40] LABS: ALKALINE PHOSPHATASE 44 U/L (40-136); CREATININE SERUM 0.79 MG/DL (0.60-1.30); GFR ESTIMATED > 60
[2019-12-13 22:41] LABS: BUN/CREATININE RATIO 20
[2019-12-13 22:43] LABS: ALANINE AMINOTRANSFERASE 16 U/L (0-55)
[2019-12-13] MEDS ORDERED: NS 100 ML (IVPB) BAG IV ONE (23:00)
[2019-12-13] MEDS ORDERED: IOHEXOL 350 MG/ML 100 ML (OMNIPAQUE 350) VIAL IV ONE (23:00)
--- NOTE | 2019-12-14 00:47 | ED GU-Female ---
General Chief Complaint: Female Reproductive Stated Complaint: BLEEDING AFTER HYSTERECTOMY Nursing Triage Note: PT AMB TO RM 8 WITH COMPLAINT OF VAGINAL BLEEDING. PT HAD HYSTERECTOMY ON November BY DR MIN. HAS HAD BLEEDING ON AND OFF SINCE. WAS SEEN IN CLINIC THIS WEEK AND HAD STITCHES CAUTERIZED. PT IS ALSO HAVING ABD PAIN. DESCRIBES SYMPTOMS SIMILAR TO MENSTRUAL BLEEDING AND CRAMPS. Nursing Sepsis Screen: No Definite Risk Source: patient History of Present Illness Date Seen by Provider: Dec 13, 2019 Allergies and Home Medications Allergies Coded Allergies: No Known Drug Allergies (Unverified , 11/12/19) Home Medications Acetaminophen 500 Mg Tablet, 1,000 MG PO Q6HR Prescribed by: OPAL MIN on 11/19/19 142 Celecoxib 200 Mg Capsule, 200 MG PO BID Prescribed by: OPAL MIN on 11/19/19 142 Escitalopram Oxalate 20 Mg Tablet, 20 MG PO DAILY, (Reported) Fexofenadine HCl 180 Mg Tablet, 180 MG PO DAILY, (Reported) Oxycodone Hcl 5 Mg Tab, 5 MG PO Q4HR PRN for PAIN-SEVERE (8-10) Prescribed by: OPAL MIN on 11/19/191422 Past Lkylpia-Hqomkk-Rbgudx Hx Patient Social History Alcohol Use: Denies Use Recreational Drug Use: No Smoking Status: Former Smoker Former Smoker, Quit: Nov 11, 1998 2nd Hand Smoke Exposure: Yes Recent Foreign Travel: No Contact w/Someone Who Travel: No Recent Infectious Disease Expo: No Recent Hopitalizations: No Immunizations Up To Date Tetanus Booster (TDap): Unknown Seasonal Allergies Seasonal Allergies: Yes Past Medical History Surgeries: Yes (several R foot sx) Gallbladder, Hysterectomy, Orthopedic, Tonsillectomy Respiratory: No Currently Using CPAP: No Currently Using BIPAP: No Cardiac: No Neurological: No Reproductive Disorders: Yes Female Reproductive Disorders: Menstrual Problems, Ovarian Cyst Sexually Transmitted Disease: No HIV/AIDS: No Genitourinary: No Gastrointestinal: No Musculoskeletal: No Endocrine: No HEENT: No (GLASSES) Loss of Vision: Denies Hearing Impairment: Denies Cancer: No Psychosocial: Yes Depression Integumentary: No Blood Disorders: No Adverse Reaction/Blood Tranf: No (N/A) Family Medical History No Pertinent Family Hx FH of breast cancer Physical Exam Vital Signs Vital Signs - First Documented 12/13/19 20:42 Temp 36.6 Pulse 91 Resp 20 B/P (MAP) 135/92 (106) Pulse Ox 97 O2 Delivery Room Air Capillary Refill : Less Than 3 Seconds Height, Weight, BMI Height: 5'6.00" Weight: 177lbs. 4.0oz. 80.835409mj; 30.00 BMI Method: General Appearance: WD/WN, no apparent distress Cardiovascular: regular rate, rhythm, no murmur Respiratory: normal breath sounds, no respiratory distress, no accessory muscle use Gastrointestinal: normal bowel sounds, soft, tenderness (MILD SUPRAPUBIC TENDERNESS. SURGICAL WOUNDS HEALING WELL, NO SIGNS OF INFECTION. ) Pelvic: normal external exam, other (SMALL AMOUNT OF BLOOD IN CANAL. NO CLOTS. APPEARS TO BE SCANT AMOUNT OF BLOOD OOZING DIFFUSELY FROM VAGINAL CUFF. ) Back: no CVA tenderness Neurologic/Psychiatric: no motor/sensory deficits, alert Skin: normal color, warm/dry Procedures/Interventions Progress VAGINAL CUFF CAUTERIZED WITH SILVER NITRATE. GOOD HEMOSTASIS. PT TOLERATED WELL. Progress/Results/Core Measures Suspected Sepsis Recent Fever Within 48 Hours: No Infection Criteria Present: None New/Unexplained Altered Menta: No Sepsis Screen: No Definite Risk SIRS Temperature: Pulse: 91 Respiratory Rate: 20 Laboratory Tests 12/13/19 22:20: White Blood Count 9.6 Blood Pressure 135 /92 Mean: 106 Laboratory Tests 12/13/19 22:20: Creatinine 0.79, Platelet Count 323, Total Bilirubin 0.3 Results/Orders Lab Results Laboratory Tests Test 12/13/19 21:44 12/13/19 22:20 Range/Units Urine Color YELLOW Urine Clarity CLEAR Urine pH 6.5 5-9 Urine Specific [place] 1.015 L 1.016-1.022 Urine Protein NEGATIVE NEGATIVE Urine Glucose (UA) NEGATIVE NEGATIVE Urine Ketones NEGATIVE NEGATIVE Urine Nitrite NEGATIVE NEGATIVE Urine Bilirubin NEGATIVE NEGATIVE Urine Urobilinogen 0.2 < = 1.0 MG/DL Urine Leukocyte Esterase TRACE H NEGATIVE Urine RBC (Auto) 2+ H NEGATIVE Urine RBC NONE /HPF Urine WBC 0-2 /HPF Urine Squamous Epithelial Cells 0-2 /HPF Urine Crystals PRESENT H /LPF Urine Amorphous Sediment MOD TREVOR URATES H /LPF Urine Bacteria TRACE /HPF Urine Casts NONE /LPF Urine Mucus SMALL H /LPF Urine Culture Indicated NO White Blood Count 9.6 4.3-11.0 10^3/uL Red Blood Count 4.40 3.80-5.11 10^6/uL Hemoglobin 14.1 11.5-16.0 g/dL Hematocrit 42 35-52 % Mean Corpuscular Volume 96 80-99 fL Mean Corpuscular Hemoglobin 32 25-34 pg Mean Corpuscular Hemoglobin Concent 33 32-36 g/dL Red Cell Distribution Width 12.7 10.0-14.5 % Platelet Count 323 130-400 10^3/uL Mean Platelet Volume 11.0 9.0-12.2 fL Immature Granulocyte % (Auto) 0 % Neutrophils (%) (Auto) 49 42-75 % Lymphocytes (%) (Auto) 37 12-44 % Monocytes (%) (Auto) 8 0-12 % Eosinophils (%) (Auto) 5 0-10 % Basophils (%) (Auto) 1 0-10 % Neutrophils # (Auto) 4.7 1.8-7.8 10^3/uL Lymphocytes # (Auto) 3.5 1.0-4.0 10^3/uL Monocytes # (Auto) 0.8 0.0-1.0 10^3/uL Eosinophils # (Auto) 0.5 H 0.0-0.3 10^3/uL Basophils # (Auto) 0.1 0.0-0.1 10^3/uL Immature Granulocyte # (Auto) 0.0 0.0-0.1 10^3/uL Sodium Level 138 135-145 MMOL/L Potassium Level 4.4 3.6-5.0 MMOL/L Chloride Level 106 98-107 MMOL/L Carbon Dioxide Level 20 L 21-32 MMOL/L Anion Gap 12 5-14 MMOL/L Blood Urea Nitrogen 16 7-18 MG/DL Creatinine 0.79 0.60-1.30 MG/DL Estimat Glomerular Filtration Rate > 60 BUN/Creatinine Ratio 20 Glucose Level 95 70-105 MG/DL Calcium Level 9.4 8.5-10.1 MG/DL Corrected Calcium 9.2 8.5-10.1 MG/DL Total Bilirubin 0.3 0.1-1.0 MG/DL Aspartate Amino Transf (AST/SGOT) 19 5-34 U/L Alanine Aminotransferase (ALT/SGPT) 16 0-55 U/L Alkaline Phosphatase 44 40-136 U/L Total Protein 7.9 6.4-8.2 GM/DL Albumin 4.3 3.2-4.5 GM/DL My Orders Orders - JACQUELINE FINCH DO Ua Culture If Indicated (12/13/19 21:57) Ed Iv/Invasive Line Start (12/13/19 21:57) Ct Abdomen/Pelvis W (12/13/19 21:57) Cbc With Automated Diff (12/13/19 21:57) Comprehensive Metabolic Panel (12/13/19 21:57) Iohexol Injection (Omnipaque 350 Mg/Ml 1 (12/13/19 23:00) Ns (Ivpb) (Sodium Chloride 0.9% Ivpb Bag (12/13/19 23:00) Medications Given in ED Vital Signs/I&O Capillary Refill : Less Than 3 Seconds Blood Pressure Mean: [address] ABDOMEN/PELVIS--POST OP CHANGES OF FEW AREAS OF EDEMA WITHIN SOFT TISSUES OF ANTERIOR ABDOMINAL WALL. TRACE FREE FLUID IN PELVIS, LIKELY PHYSIOLOGIC. NO OTHER ACUTE PROCESS--PER [facility] VIA FAX AT [id number] Reviewed: Reviewed by Me Departure Impression Primary Impression: Postoperative vaginal bleeding following genitourinary procedure Additional Impression: post op bleeding from vaginal cuff post hysterectomy Disposition: HOME, SELF-CARE Condition: Stable Departure-Patient Inst. Referrals: JACQUELINE DEMARCO MD (PCP/Family) Primary Care Physician OPAL MIN DO Patient Instructions: Bleeding After Surgery Add. Discharge Instructions: HOME, REST TYLENOL OR MOTRIN NEEDED FOR PAIN CONTINUE ALL POST OP INSTRUCTIONS FOLLOW UP WITH DR. MIN ON MONDAY, RETURN TO ER IF WORSE All discharge instructions reviewed with patient and/or family. Voiced understanding. JACQUELINE FINCH DO Dec 14, 2019 00:47
[2019-12-14 01:13] VITALS: BP 135/92
--- NOTE | 2019-12-14 07:11 | Diagnostic Imaging Report ---
PROCEDURE: CT abdomen and pelvis with contrast. TECHNIQUE: Multiple contiguous axial images were obtained through the abdomen and pelvis after administration of intravenous contrast. Auto Exposure Controls were utilized during the CT exam to meet ALARA standards for radiation dose reduction. All CT scans use one or more of the following dose optimizing techniques: automated exposure control, MA and/or KvP adjustment based on patient size and exam type or iterative reconstruction. INDICATION: Postop pain and bleeding. COMPARISON: None. FINDINGS: Lung bases are clear. Cholecystectomy. The liver, pancreas, spleen, adrenals, kidneys, collecting systems and bladder negative. Hysterectomy. Mild edema in the pelvis without organized fluid collection. Corpus luteum in the left ovary. Normal appendix. No free intraperitoneal air. No evidence of bowel obstruction. No lymphadenopathy. No acute osseous findings. IMPRESSION: 1. Hysterectomy with some edematous changes in the pelvis, may be postoperative. There is a corpus luteum within an edematous appearing left ovary. No free intraperitoneal air. No organized fluid collections. 2. Cholecystectomy. No significant change from preliminary interpretation. Dictated by: Dictated on workstation # [id number]
== END 2019-12-14 01:13 | disposition home or self-care (01) ==
LOC: EDUNIT# 20:03 → ER 20:05
DX: N99.89 Other postprocedural complications and disorders of genitourinary system (principal); F32.9 Major depressive disorder, single episode, unspecified; Z80.3 Family history of malignant neoplasm of breast; Z87.891 Personal history of nicotine dependence
CPT/HCPCS: 36415; 74177; 80053; 81000; 85025

== ENCOUNTER 2020-04-24 15:05 | Outpatient (RCR) | payer OTHER | END 2020-04-30 | disposition home or self-care (01) | PROVIDERS: ATTEND Family Medicine | DX: M54.9 Dorsalgia, unspecified (principal); Z20.828 Contact with and (suspected) exposure to other viral communicable diseases ==

== ENCOUNTER 2020-07-22 13:45 | Outpatient (RCR) | payer OTHER | END 2020-08-13 | disposition home or self-care (01) | PROVIDERS: ATTEND Family Medicine | DX: M54.9 Dorsalgia, unspecified (principal) ==

== ENCOUNTER 2020-12-23 08:43 | Outpatient (RCR) | payer OTHER | END 2021-01-12 | disposition home or self-care (01) | PROVIDERS: ATTEND Family Medicine | DX: M54.9 Dorsalgia, unspecified (principal) ==

== ENCOUNTER 2021-01-21 10:26 | Outpatient (RCR) | payer OTHER | END 2021-02-12 | disposition home or self-care (01) | PROVIDERS: ATTEND Family Medicine | DX: M54.9 Dorsalgia, unspecified (principal) ==

== ENCOUNTER 2021-03-12 09:16 | Outpatient (RCR) | payer OTHER | END 2021-03-15 | disposition home or self-care (01) | PROVIDERS: ATTEND Family Medicine | DX: M54.9 Dorsalgia, unspecified (principal) ==

== ENCOUNTER 2021-05-12 08:30 | Outpatient (RCR) | payer OTHER | END 2021-05-13 | disposition home or self-care (01) | PROVIDERS: ATTEND Family Medicine | DX: M54.9 Dorsalgia, unspecified (principal) ==

== ENCOUNTER 2021-06-11 09:59 | Outpatient (RCR) | payer OTHER | END 2021-06-12 | disposition home or self-care (01) | PROVIDERS: ATTEND Family Medicine | DX: M54.9 Dorsalgia, unspecified (principal) ==

== ENCOUNTER 2021-06-17 14:46 | Outpatient (RCR) | payer OTHER | END 2021-07-13 | disposition home or self-care (01) | PROVIDERS: ATTEND Family Medicine | DX: M54.9 Dorsalgia, unspecified (principal) ==

== ENCOUNTER 2021-08-06 08:30 | Outpatient (RCR) | payer OTHER | END 2021-08-12 | disposition home or self-care (01) | PROVIDERS: ATTEND Family Medicine | DX: M54.9 Dorsalgia, unspecified (principal) ==

== ENCOUNTER 2021-09-01 15:06 | Outpatient (RCR) | payer OTHER | END 2021-09-12 | disposition home or self-care (01) | PROVIDERS: ATTEND Family Medicine | DX: M54.9 Dorsalgia, unspecified (principal) ==

== ENCOUNTER 2021-10-05 08:43 | Outpatient (RCR) | payer OTHER | END 2021-10-13 | disposition home or self-care (01) | PROVIDERS: ATTEND Family Medicine | DX: M54.9 Dorsalgia, unspecified (principal) ==

== ENCOUNTER 2021-10-21 12:56 | Outpatient (RCR) | payer OTHER | END 2021-11-12 | disposition home or self-care (01) | PROVIDERS: ATTEND Family Medicine | DX: M54.2 Cervicalgia (principal) ==

== ENCOUNTER → 2022-01-12 | Outpatient (RCR) | payer OTHER | END | disposition home or self-care (01) | PROVIDERS: ATTEND Family Medicine | DX: M54.2 Cervicalgia (principal); G89.29 Other chronic pain ==

== ENCOUNTER 2022-02-01 08:40 | Outpatient (RCR) | payer OTHER | END 2022-02-12 | disposition home or self-care (01) | PROVIDERS: ATTEND Family Medicine | DX: M54.9 Dorsalgia, unspecified (principal) ==

== ENCOUNTER 2022-03-14 08:32 | Outpatient (RCR) | payer OTHER | END 2022-03-15 | disposition home or self-care (01) | PROVIDERS: ATTEND Family Medicine | DX: M54.9 Dorsalgia, unspecified (principal) ==

== ENCOUNTER 2022-04-11 11:08 | Outpatient (RCR) | payer OTHER | END 2022-04-12 | disposition home or self-care (01) | PROVIDERS: ATTEND Family Medicine | DX: M54.9 Dorsalgia, unspecified (principal) ==

== ENCOUNTER 2022-05-02 09:59 | Outpatient (RCR) | payer OTHER | END 2022-05-13 | disposition home or self-care (01) | PROVIDERS: ATTEND Family Medicine | DX: M54.9 Dorsalgia, unspecified (principal) ==

== ENCOUNTER 2022-06-10 08:02 | Outpatient (RCR) | payer OTHER | END 2022-06-12 | disposition home or self-care (01) | PROVIDERS: ATTEND Family Medicine | DX: M54.9 Dorsalgia, unspecified (principal) ==

== ENCOUNTER 2022-06-20 15:11 | Outpatient (RCR) | payer OTHER | END 2022-07-13 | disposition home or self-care (01) | PROVIDERS: ATTEND Family Medicine | DX: M54.9 Dorsalgia, unspecified (principal) ==

== ENCOUNTER 2022-08-19 10:44 | Outpatient (RCR) | payer OTHER | END 2022-09-12 | disposition home or self-care (01) | PROVIDERS: ATTEND Family Medicine | DX: M54.9 Dorsalgia, unspecified (principal) ==

== ENCOUNTER 2022-10-11 15:08 | Outpatient (RCR) | payer OTHER | END 2022-10-13 | disposition home or self-care (01) | PROVIDERS: ATTEND Family Medicine | DX: M54.9 Dorsalgia, unspecified (principal) ==

== ENCOUNTER 2022-11-30 10:44 | Outpatient (RCR) | payer OTHER | END 2022-12-13 | disposition home or self-care (01) | PROVIDERS: ATTEND Family Medicine | DX: M54.9 Dorsalgia, unspecified (principal) ==

== ENCOUNTER 2022-12-28 15:16 | Outpatient (RCR) | payer OTHER | END 2023-01-12 | disposition home or self-care (01) | PROVIDERS: ATTEND Family Medicine | DX: M54.9 Dorsalgia, unspecified (principal) ==